=== PATIENT | female | born 1980 | race Caucasian/White ===

== ENCOUNTER → 2019-01-12 | Outpatient (CLI) | payer SELFPAY ==
--- NOTE | 2019-01-14 08:24 | RADIOLOGY IMAGING REPORT ---
FACILITY: [facility] PATIENT NAME: SCOTT GLEASON : [id number] MR: [id number] V: [id number] EXAM DATE: [id number] ORDERING PHYSICIAN: LUCIANO HYLTON TECHNOLOGIST: Lucy Philip PROCEDURE:BILATERAL DIAGNOSTIC DIGITAL MAMMOGRAM WITH CAD ASSISTED INTERPRETATION & 3D TOMOSYNTHESIS REASON FOR STUDY: Right breast pain all over and purple spot on her skin in the upper medial quadrant and tingling at her Right nipple times 3 weeks. FAMILY HISTORY OF BREAST CANCER: None. BREAST PROCEDURES/TREATMENTS: None. COMPARISON STUDIES: 04/26/14 MAMMOGRAM VIEWS OBTAINED: Bilateral 2D & 3D full field CC & MLO projection. BREAST DENSITY: The breasts are heterogeneously dense which can obscure small masses. MAMMOGRAM FINDINGS: The parenchymal pattern has remained stable allowing for difference in mammographic technique & patient positioning. ULTRASOUND AREA SCANNED: The 12-4 o'clock position of the Right breast in addition to the Right retroareolar breast. ULTRASOUND FINDINGS: No sonographic correlate could be identified to account for patients findings therefore clinical follow-up recommended. DIAGNOSTIC CATEGORY 2--BENIGN FINDING. RECOMMENDATIONS: ROUTINE MAMMOGRAM AND CLINICAL EVALUATION. IMPRESSION: BIRADS 2: Benign finding. No mammographic or sonographic abnormality identified therefore clinical follow-up recommended for patient's palpable findings. Dictated by: Mabel Barajas M.D. on 01/12/2019 at 17:33 Transcribed by: MAHNAZ on 01/13/2019 at 11:12 Approved by: Mabel Barajas M.D. on 01/14/2019 at 8:24 [facility]
--- NOTE | 2019-01-14 08:25 | RADIOLOGY IMAGING REPORT ---
[place] [facility] [place] NAME: SCOTT GLEASON : [id number] MR: [id number] V: [id number] EXAM DATE: ORDERING PHYSICIAN: [facility] TECHNOLOGIST: Prabha Moody RDMS PROCEDURE:US RIGHT BREAST COMPARISON:04/26/14 INDICATIONS: Right breast pain all over and purple spot on her skin in the upper medial quadrant and tingling at her Right nipple times 3 weeks. AREA SCANNED: The 12-4 o'clock position of the Right breast in addition to the Right retroareolar breast. ULTRASOUND FINDINGS: No sonographic correlate could be identified to account for patients findings therefore clinical follow-up recommended. DIAGNOSTIC CATEGORY 2--BENIGN FINDING. RECOMMENDATIONS: ROUTINE MAMMOGRAM AND CLINICAL EVALUATION. IMPRESSION: BIRADS 2: Benign finding. No mammographic or sonographic abnormality identified therefore clinical follow-up recommended for patient's palpable findings. Dictated by: Mabel Barajas M.D. on 01/12/2019 at 17:33 Transcribed by: MAHNAZ on 01/13/2019 at 11:12 Approved by: Mabel Barajas M.D. on 01/14/2019 at 8:24 [facility]
== END ==
LOC: MAMO 00:16
PROVIDERS: ATTEND Nurse Practitioner
DX: N64.4 Mastodynia (principal)
CPT/HCPCS: 77062; 77066